=== PATIENT | male | born 1975 | race African-American/Black ===

== ENCOUNTER 2017-03-16 15:41 | Emergency (ER) | payer OTHER ==
[~2017-03-16] VITALS: Ht 193 cm; Wt 90.7 kg
[2017-03-16] MEDS ORDERED: cloNIDine HCL 0.1 MG TAB ONE (16:17)
[2017-03-16] MEDS ORDERED: ACETAMINOPHEN 325 MG TAB PO ONE ×2 (16:21→16:30)
[2017-03-16] MEDS ORDERED: cloNIDine HCL 0.1 MG TAB PO ONE (16:30)
[2017-03-16 16:49] LABS: Eosinophils # (auto) 0 uL; Lymphocytes # (auto) 1.7 uL; Mean Corpuscular Hemoglobin 31.2 pg (28.0-32.0); Monocytes # (auto) 0.5 uL; White Blood Cell 4.9 10^3/uL (4.4-10.8)
[2017-03-16 16:51] LABS: Basophils # (auto) 0 uL; Eosinophils % (auto) 0.7 % (0.0-7.0); Hematocrit 52.1 % (41.0-53.0); Mean Corpuscular Hgb Conc. 34.7 g/dL (32.0-36.0); Mean Corpuscular Volume 89.7 fL (80.0-100.0); Monocytes % (auto) 9.4 % (0.0-12.0); Neutrophils # (auto) 2.7 uL; Neutrophils % (auto) 53.9 % (37.0-80.0); Nucleated Red Blood Cells % 0.2 %; Platelet Count (auto) 223 10^3/uL (140-450); Red Cell Distribution Width 12.9 % (11.8-14.3)
[2017-03-16 16:53] LABS: Urine Bilirubin Negative (Negative); Urine Blood Negative /uL (Negative); Urine Color Yellow (Yellow); Urine Glucose Normal (Normal); Urine Ketone Negative (Negative); Urine Mucus FEW (None Seen); Urine Nitrite Negative (Negative); Urine RBC 1 /hpf (0 - 3); Urine Squamous Epithelial Cell FEW /hpf (<5); Urine pH 6.5 (5.0-8.0)
[2017-03-16 17:08] LABS: Albumin 4.2 g/dL (3.4-5.0); Alkaline Phosphatase 85 U/L (45-117); Anion Gap 7 (5-15); Aspartate Aminotransferase 26 U/L (15-37); BUN/Creatinine Ratio 12.9; Bilirubin, Total 0.5 mg/dL (0.2-1.0); Blood Urea Nitrogen 16 mg/dL (7-18); Calcium 8.4 mg/dL (8.5-10.1); Carbon Dioxide 28 mmol/L (21-32); Chloride 104 mmol/L (98-107); GFR African American 83 mL/min; GFR Non-African American 69 mL/min; Glucose 101 mg/dL (74-106); Magnesium 2.7 mg/dL (1.6-2.6); Potassium 3.8 mmol/L (3.5-5.1); Sodium 139 mmol/L (136-145); Total Protein 8.6 g/dL (6.4-8.2)
[2017-03-16 17:52] VITALS: BP 168/114
== END 2017-03-16 18:04 | disposition home or self-care (01) ==
LOC: ER 15:41
DX: I10 Essential (primary) hypertension (principal); E78.5 Hyperlipidemia, unspecified
CPT/HCPCS: 36415; 71020; 80053; 81001; 83735; 84484; 85025; 93005

== ENCOUNTER 2017-05-03 17:14 | Emergency (ER) | payer OTHER ==
[~2017-05-03] VITALS: Ht 193 cm; Wt 127.0 kg
[2017-05-03] MEDS ORDERED: BACLOFEN 10 MG TAB PO ONE (20:30)
[2017-05-03] MEDS ORDERED: IBUPROFEN 600 MG TAB PO ONE (20:30)
[2017-05-03 20:40] VITALS: BP 115/54
== END 2017-05-03 20:41 | disposition home or self-care (01) ==
LOC: EDBD 17:14 → ER 17:14
DX: S16.1XXA Strain of muscle, fascia and tendon at neck level, initial encounter (principal); R51 Headache; F12.10 Cannabis abuse, uncomplicated; E78.5 Hyperlipidemia, unspecified; I10 Essential (primary) hypertension; V48.6XXA Car passenger injured in noncollision transport accident in traffic accident, initial encounter; Y93.89 Activity, other specified; Y99.8 Other external cause status; Y92.410 Unspecified street and highway as the place of occurrence of the external cause
CPT/HCPCS: 70450; 72125

== ENCOUNTER 2019-06-04 07:57 | Emergency (ER) | payer SELFPAY ==
[~2019-06-04] VITALS: Ht 193 cm; Wt 133.8 kg
[2019-06-04 08:08] VITALS: BP 181/118
[2019-06-04] MEDS ORDERED: IPRATROPIUM BROM 0.5 MG/2.5ML INH SOL NEB ONE (08:30)
[2019-06-04] MEDS ORDERED: ALBUTEROL SULF 2.5 MG/0.5ML(0.5%) NEB SOLN NEB ONE (08:30)
== END 2019-06-04 09:20 | disposition home or self-care (01) ==
LOC: ER 07:57
DX: J20.9 Acute bronchitis, unspecified (principal); J01.00 Acute maxillary sinusitis, unspecified; E78.5 Hyperlipidemia, unspecified; I10 Essential (primary) hypertension; F12.10 Cannabis abuse, uncomplicated
CPT/HCPCS: 71046; 94640; 99283; J7611; J7644

== ENCOUNTER 2020-10-04 07:37 | Emergency (ER) | payer SELFPAY ==
[~2020-10-04] VITALS: Ht 193 cm; Wt 131.5 kg
[2020-10-04] MEDS ORDERED: cloNIDine HCL 0.1 MG TAB PO ONE (08:00)
[2020-10-04 09:40] VITALS: BP 168/94
[2020-10-04] MEDS ORDERED: TETANUS-DIPTH-ACEL PERTUSSIS 0.5ML SYR Tdap IM ONE (10:30)
== END 2020-10-04 10:30 | disposition home or self-care (01) ==
LOC: ER 07:37
DX: S91.311A Laceration without foreign body, right foot, initial encounter (principal); I10 Essential (primary) hypertension; E78.5 Hyperlipidemia, unspecified; F12.10 Cannabis abuse, uncomplicated; W54.0XXA Bitten by dog, initial encounter; Y93.89 Activity, other specified; Y92.89 Other specified places as the place of occurrence of the external cause; Y99.8 Other external cause status
CPT/HCPCS: 12001; 90471; 90715

== ENCOUNTER 2021-05-06 06:07 | Emergency (ER) | payer OTHER ==
[~2021-05-06] VITALS: Ht 193 cm; Wt 130.2 kg
[2021-05-06] MEDS ORDERED: cloNIDine HCL 0.1 MG TAB PO ONE (07:00)
[2021-05-06] MEDS ORDERED: CARB6.5S44 OT (08:41)
[2021-05-06 09:00] VITALS: BP 180/90
== END 2021-05-06 09:13 | disposition home or self-care (01) ==
LOC: ER 06:07
DX: J06.9 Acute upper respiratory infection, unspecified (principal); H61.23 Impacted cerumen, bilateral; I10 Essential (primary) hypertension; E78.5 Hyperlipidemia, unspecified; F12.10 Cannabis abuse, uncomplicated

== ENCOUNTER 2021-07-31 13:33 | Emergency (ER) | payer MEDICAID ==
[~2021-07-31] VITALS: Ht 193 cm; Wt 133.8 kg
[~2021-07-31 13:33] MED LIST: CARB6.5S44 OT
[2021-07-31 13:38] VITALS: BP 143/97
[2021-07-31 14:26] LABS: Basophils # (auto) 0.1 10 ^3/uL (0-0.2); Basophils % (auto) 1.2 % (0.0-2.0); Eosinophils # (auto) 0.1 10 ^3/uL (0-0.8); Hematocrit 44.7 % (41.0-53.0); Hemoglobin 15.6 g/dL (13.5-17.5); Lymphocytes # (auto) 2.1 10 ^3/uL (0.4-5.4); Lymphocytes % (auto) 44.1 % (10.0-50.0); Mean Corpuscular Hemoglobin 30.3 pg (28.0-32.0); Mean Corpuscular Hgb Conc. 34.8 g/dL (32.0-36.0); Monocytes # (auto) 0.5 10 ^3/uL (0-1.3); Monocytes % (auto) 9.7 % (0.0-12.0); Nucleated Red Blood Cells % 0.4 %; Red Blood Cells 5.14 10^6/uL (4.5-5.90); Red Cell Distribution Width 13.5 % (11.8-14.3); White Blood Cell 4.8 10^3/uL (4.4-10.8)
[2021-07-31 14:48] LABS: Albumin 3.7 g/dL (3.4-5.0); Calcium 8.7 mg/dL (8.5-10.1); Potassium 3.9 mmol/L (3.5-5.1)
[2021-07-31 14:54] LABS: BUN/Creatinine Ratio 11.5; Bilirubin, Total 0.3 mg/dL (0.2-1.0); Total Protein 7.6 g/dL (6.4-8.2)
== END 2021-07-31 18:33 | disposition left against medical advice (07) ==
LOC: ER 13:33
DX: R42 Dizziness and giddiness (principal); H53.8 Other visual disturbances; R11.0 Nausea; Z53.21 Procedure and treatment not carried out due to patient leaving prior to being seen by health care provider
CPT/HCPCS: 36415; 80053; 84484; 85025; 93005

== ENCOUNTER 2024-07-26 03:00 | Emergency (ER) | payer MEDICAID, OTHER ==
[~2024-07-26] VITALS: Ht 193 cm; Wt 140.9 kg
--- NOTE | 2024-07-26 03:14 | ED.PDOC ---
SOB-HPI HPI Comments cough Comments cough and congestion for 2 days. sore throat for 2 weeks. pt has had same 6 months ago, was prescribed an antibiotic and an inhaler, but he has not used the inhaler. he smokes marijuana. no sick contacts Time Seen by MD: 03:07 Primary Care Provider: DOES NOT HAVE ONE Information Source: Patient Mode of Arrival: Ambulatory Severity: Mild Timing: Days Duration: Since onset Context: At Rest History of: Recent URI Associated Signs and Symptoms: Cough, Nasal Congestion, Sore Throat If cough with SOB: Non-Productive Past Medical History PAST MEDICAL HISTORY: High Lipids, HTN Surgical History: Denies all surgeries Family History Family History: Family hx of HTN Social History Smoker: Other (smokes marijuana) Alcohol: Occasionally Drugs: Marijuana Lives In: Home Constitutional: denies: chills, diaphoresis, fatigue, fever, malaise, sweats, weakness, others EENTM: reports: throat pain; denies: blurred vision, double vision, ear bleeding, ear discharge, ear drainage, ear pain, ear ringing, eye pain, eye redness, hearing loss, mouth pain, mouth swelling, nasal discharge, nose bleeding, nose congestion, nose pain, photophobia, tearing, throat swelling, voice changes, others Respiratory: reports: cough; denies: hemoptysis, orthopnea, SOB at rest, shortness of breath, SOB with excertion, stridor, wheezing, others Cardiovascular: denies: chest pain, dizzy spells, diaphoresis, Dyspnea on exertion, edema, irregular heart beat, left arm pain, lightheadedness, palpitations, PND, syncope, others Gastrointestinal: denies: abdomen distended, abdominal pain, blood streaked bowels, constipated, diarrhea, dysphagia, difficulty swallowing, hematemesis, melena, nausea, poor appetite, poor fluid intake, rectal bleeding, rectal pain, vomiting, others Genitourinary: denies: burning, dysuria, flank pain, frequency, hematuria, incontinence, penile discharge, penile sore, pain, testicle pain, testicle swelling, urgency, others Neurological: denies: dizziness, fainting, headache, left sided numbness, left sided weakness, numbness, paresthesia, pre-existing deficit, right sided numbness, right sided weakness, seizure, speech problems, tingling, tremors, weakness, others Musculoskeletal: denies: back pain, gout, joint pain, joint swelling, muscle pain, muscle stiffness, neck pain, others Integumetry: denies: bruises, change in color, change in hair/nails, dryness, laceration, lesions, lumps, rash, wounds, others Allergic/Immunocompromised: denies: Difficulty Healing, Frequent Infections, Hives, Itching, others Hematologic/Lymphatic: denies: anemia, blood clots, easy bleeding, easy bruising, swollen glands, others Endocrine: denies: excessive hunger, excessive sweating, excessive thirst, excessive urination, flushing, intolerance to cold, intolerance to heat, unexplained weight gain, unexplained weight loss, others Psychiatric: denies: anxiety, bipolar disorder, depression, hopeless, panic disorder, schizophrenia, sleepless, suicidal, others All Other Systems: Reviewed and Negative Physical Exam General Appearance: No Apparent Distress, Normal HEENT: Normal ENT Inspection, Pharynx Normal, TMs Normal Neck: Full Range of Motion, Non-Tender, Normal, Normal Inspection Respiratory: Chest Non-Tender, Lungs Clear, No Accessory Muscle Use, No Respiratory Distress, Rhonchi Cardiovascular: No Edema, No JVD, No Murmur, No Gallop, Normal Peripheral Pulses, Regular Rate/Rhythm Breast Exam: Deferred Gastrointestinal: No Organomegaly, Non Tender, No Pulsatile Mass, Normal Bowel Sounds, Soft Genitalia: Deferred Pelvic: Deferred Rectal: Deferred Extremities: No calf tenderness, Normal capillary refill, Normal inspection, Normal range of motion, Non-tender, No pedal edema Musculoskeletal : Apperance: Normal Neurologic: Alert, weight caller II-XII nml as Tested, No Motor Deficits, Normal Affect, Normal Mood, No Sensory Deficits Cerebellar Function: Normal Reflexes: Normal Skin: Dry, Normal Color, Warm Lymphatic: No Adenopathy Was a procedure done? Was a procedure done?: No Differential Dx Differential Diagnosis: Asthma, Bronchitis, CHF, COPD, Pneumonia, Pneumothorax, URI X-Ray, Labs, Meds, VS Vital Signs Date Time Temp Pulse Resp B/P (MAP) Pulse Ox O2 Delivery O2 Flow Rate FiO2 07/26/24 03:15 98.0 93 22 124/82 (96) 97 98.0 07/26/24 03:15 97 Room Air* 0 21 [facility] [id number] [place] [address] Ph: [phone] DIAGNOSTIC IMAGING Diagnostic Imaging Report : [id number] Signed PATIENT: UDAY MCKEON ACCT: [id number] UNIT: [id number] : 1975 LOC: ER ROOM / BED: / AGE / SEX: 49 / M ADM STATUS: REG ER SERVICE 0 ORDERING PHYSICIAN: FAHEEM LINDSAY MD PROCEDURE(s): CXRP - CHEST PORTABLE REASON: cough ORDER NUMBER(s): [id number], ACCESSION NUMBER(s): [id number] CHEST RADIOGRAPH Indication: cough Technique: Single frontal view of the chest was obtained Comparison: None IMPRESSION: Heart appears normal in size. The lungs appear clear without focal airspace opacity, effusion, or pneumothorax ATED BY: LIZZY LEIVA MD DICTATED DATE/TIME: 07/26/24333 SIGNED BY: LIZZY LEIVA MD SIGNED DATE/TIME: 07/26/24333 CC: Time of 1ST Reevaluation: 03:37 Reevaluation 1ST: Unchanged Patient Education/Counseling: Diagnosis, Treatment, Prognosis, Need For Follow Up Family Education/Counseling: No Family Present Additional Information Previous medical encounters reviewed: n/a The following tests were ordered, and results were reviewed by me: CXR Additional Information was gathered from interviewing the following independent historians: n/a I reviewed and agreed with the following test results read by other providers: CXR I discussed treatment and results with medical personnel and: Patient pt's cxr is unremarkable. he likely has reactive airway disease, undiagnosed asthma. i have advised for him to stop smoking marijuana and use his inhaler. i will refill it and start him on prednisone Departure 1 Departure Time of Disposition: 03:44 Impression: Primary Impression: Reactive airway disease Qualified Codes: J45.21 - Mild intermittent asthma with (acute) exacerbation Additional Impressions: Smoking addiction Noncompliance Disposition: HOME / SELF CARE / HOMELESS Condition: Good e-Prescriptions Benzonatate (Benzonatate) 200 Mg Cap 200 MG PO Q4HP PRN for 5 Days, #30 CAP Prov: FAHEEM LINDSAY MD 07/26/24 Prednisone (Prednisone) 20 Mg Tab 20 MG PO DAILY for 5 Days, #5 MG Prov: FAHEEM LINDSAY MD 07/26/24 Ipratropium-Albuterol (COMBIVENT RESPIMAT) Respimat Aer 2 PUFF IN Q4HP PRN, #1 AER Prov: FAHEEM LINDSAY MD 07/26/24 Discharged With: Self Critical Care Note Critical Care Time?: No Stability Stability form required: No Heart Score Heart Score: Heart Score Response (Comments) Value History N/A 0 EKG N/A 0 Age N/A 0 Risk Factors N/A 0 Troponin N/A 0 Total 0 I personally scribed for FAHEEM LINDSAY MD ([email or web address]) on 07/26/24 at 03:42. Electronically submitted by Moshe Arechiga ([email or web address]). FAHEEM LINDSAY MD Jul 26, 2024 03:14
--- NOTE | 2024-07-26 03:36 | DVH ---
CHEST RADIOGRAPH Indication: cough Technique: Single frontal view of the chest was obtained Comparison: None IMPRESSION: Heart appears normal in size. The lungs appear clear without focal airspace opacity, effusion, or pn eumothorax
[2024-07-26] MEDS ORDERED: PRED20TA2 PO (03:46)
[2024-07-26] MEDS ORDERED: IPRAAER6 IN (03:46)
[2024-07-26] MEDS ORDERED: BENZ200C64 PO (03:46)
[2024-07-26 04:50] VITALS: BP 130/78; PULSE 85; RESP 18; TEMP 98.1; O2SAT 98
[2024-07-26 04:52] VITALS: RESP 22; O2SAT 95
[2024-07-26] MEDS: ALBUTEROL SULF 2.5 MG/0.5ML(0.5%) NEB SOLN NEB ONE (04:52)
[2024-07-26] MEDS: IPRATROPIUM BROM 0.5 MG/2.5ML INH SOL NEB ONE (04:52)
== END 2024-07-26 04:58 | disposition home or self-care (01) ==
LOC: ER 03:07
DX: J45.998 Other asthma (principal); F17.200 Nicotine dependence, unspecified, uncomplicated; F12.90 Cannabis use, unspecified, uncomplicated; I10 Essential (primary) hypertension; E78.5 Hyperlipidemia, unspecified
CPT/HCPCS: 71045; 94640